=== PATIENT | female | born 1990 | race Two or more races ===

== ENCOUNTER 2017-06-14 16:43 | Emergency (ER) | payer SELFPAY ==
[2017-06-14 17:09] LABS: URINE HCG POC HCG POSITIVE (Negative)
[2017-06-14 18:02] LABS: ADD MAN DIFF? NO
[2017-06-14 18:04] LABS: BASO # 0.1 x10^3/uL (0.0-0.2); BASO % 1 % (0-3); EOS # 0.5 x10^3/uL (0.0-0.7); EOS % 4 % (0-3); HEMATOCRIT 41.4 % (36.0-47.0); HEMOGLOBIN 13.8 g/dL (12.0-15.5); LYMPH # 2.8 x10^3/uL (1.0-4.8); LYMPH % 25 % (24-48); MEAN CORPUSCULAR HEMOGLOBIN 28 pg (25-35); MEAN CORPUSCULAR HGB CONC 33 g/dL (31-37); MEAN CORPUSCULAR VOLUME 85 fL (79-100); MONO # 0.7 x10^3/uL (0.0-1.1); MONO % 6 % (0-9); NEUT # 7.4 x10^3uL (1.8-7.7); NEUT % 65 % (31-73); PLATELET COUNT 321 x10^3/uL (140-400); RED BLOOD COUNT 4.89 x10^6/uL (3.50-5.40); WHITE BLOOD COUNT 11.4 x10^3/uL (4.0-11.0)
[2017-06-14] MEDS: IV NORMAL SALINE 1000ML BAG 1,000 ML IV (18:10)
[2017-06-14] MEDS: 0.9 % SODIUM CHLORIDE 10 ML DISP.SYRIN. IV (18:11)
[2017-06-14] MEDS: ONDANSETRON PF 4 MG/2 ML VIAL. IV (18:11)
[2017-06-14 18:12] LABS: BILIRUBIN,URINE NEGATIVE (NEG); CLARITY,URINE CLEAR; GLUCOSE,URINE NEGATIVE (NEG); NITRITE,URINE NEGATIVE (NEG); PROTEIN,URINE NEGATIVE (NEG-TRACE); UROBILINOGEN,URINE 0.2 mg/dL (0.2 mg/dL)
[2017-06-14 18:28] LABS: BACTERIA,URINE MODERATE /HPF (0-FEW); COLOR,URINE STRAW; SQUAMOUS EPITHELIAL CELL,UR MANY /LPF
[2017-06-14 18:55] LABS: ANION GAP 12 (6-14); BLOOD UREA NITROGEN 10 mg/dL (7-20); CALCIUM 9.4 mg/dL (8.5-10.1); CARBON DIOXIDE 25 mmol/L (21-32); CHLORIDE 103 mmol/L (98-107); CREATININE 0.6 mg/dL (0.6-1.0); GFR 121.8; GLUCOSE 90 mg/dL (70-99); POTASSIUM 3.6 mmol/L (3.5-5.1); SODIUM 140 mmol/L (136-145)
[2017-06-14 19:02] LABS: ALBUMIN 3.5 g/dL (3.4-5.0); ALK PHOS 78 U/L (46-116); ALT (SGPT) 20 U/L (14-59); AST (SGOT) 10 U/L (15-37); DIRECT BILIRUBIN < 0.1 mg/dL (0.0-0.2); MAGNESIUM 1.8 mg/dL (1.8-2.4); TOTAL BILIRUBIN 0.2 mg/dL (0.2-1.0); TOTAL PROTEIN 7.8 g/dL (6.4-8.2)
== END 2017-06-14 19:32 | disposition home or self-care (01) ==
LOC: ER 16:43
DX: O20.0 Threatened abortion (principal); Z3A.08 8 weeks gestation of pregnancy
CPT/HCPCS: 36415; 76817; 80048; 80076; 81001; 81025; 83735; 84702; 85025; 86900; 86901; 87086; 96361; 96374; 99285-25; J2405; J7030